=== PATIENT | female | born 1955 | race Asian ===

== ENCOUNTER 2017-07-29 14:57 | Emergency (ER) | payer BC ==
[~2017-07-29] VITALS: Ht 172.7 cm; Wt 97.5 kg
[2017-07-29 15:00] VITALS: BP 190/97; TEMP 97.7
[2017-07-29] MEDS ORDERED: AMLODIPINE BESYLATE PO (15:02)
[2017-07-29 15:43] LABS: PLATELET COUNT 304 K/uL (152-353)
[2017-07-29 15:53] LABS: POTASSIUM 3.5 mmol/L (3.6-5.2)
== END 2017-07-29 17:00 | disposition home or self-care (01) ==
LOC: ED 14:57
PROVIDERS: Specialist
DX: R07.89 Other chest pain (principal)
CPT/HCPCS: 36415; 80053; 81000; 82550; 82553; 83735; 84100; 84484; 85027; 87040; 99283

== ENCOUNTER 2020-05-19 09:23 | Outpatient (CLI) | payer OTHER, MEDICARE ==
[~2020-05-19 09:23] MED LIST: AMLODIPINE BESYLATE PO
== END 2020-05-19 21:06 | disposition home or self-care (01) ==
LOC: INF 09:23
PROVIDERS: ATTEND Internal Medicine
DX: Z23 Encounter for immunization (principal)
CPT/HCPCS: 96372